=== PATIENT | female | born 1960 | race Caucasian/White ===

== ENCOUNTER 2017-03-08 10:07 | Observation (INO) | payer MEDICARE ==
[~2017-03-08] VITALS: Ht 160 cm; Wt 103.2 kg
[~2017-03-08 10:07] MED LIST: AMITRIPTYLINE 225 MG PO; BENAZEPRIL HYDR10 MG PO; Diclofenac Sodi75 MG PO; LYRICA150 MG PO; OXYCONTIN 10MG10 MG PO
[2017-03-08 10:08] VITALS: BP 123/78
--- NOTE | 2017-03-08 10:15 | Emergency Room Report ---
History of Present Illness Time Seen by 1011 Presenting Problem in Triage Pt arrived:Wheelchair Presenting Problem:PT STATES SHE WAS IN DR MUNIZ OFFICE AND HER CHEST STARTED HURTING. PT WAS GIVEN 4 81MG ASPIRIN AT THAT TIME. PT WAS DIAPHORATIC, DENIES ANY OTHER SYMPTOMS. 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 N Clinical Suspician of Infection? N Mental Status: 1 - Regular (Normal Baseline) Sepsis Risk:Low Sepsis Risk Have you (or family members/close friends) recently traveled outside the [place]? N If Yes, where/when: Have you had exposure to infectious disease within the past month? TB? Other? Specify: Patient presents with acute onset of SSCP at rest (in waiting room of PCP office for back pain appointment). Given ASA and transferred to ED. Pain self resolving and lasted about thirty minutes, associated with some diaphoresis but no SOB, no calf pain, no palpitations, no near syncope or syncope, no recent travel, no n/ v. Cardiac RF's include Dad with hx CABG, but otherwise states no pmh CAD/HTN/DM /hyperlipidemia and she denies tobacco use. 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 Hx LMP N/A Social History Smoking Hx Smoker: Never Smoker Tobacco: No Alcohol Alcohol: No Review of Systems All Other Systems Reviewed and Negative Cardiovascular see HPI Musculoskeletal see HPI Physical Exam Vital Signs Vital Signs Date Time Temp Pulse Resp B/P Pulse O2 O2 Flow FiO2 Ox Delivery Rate 03/08 1008 98.4 80 20 123/78 97 General Appearance normal appearance, WD/WN, no apparent distress Eye Exam - bilateral eye normal exam, bilateral eye PERRL, bilateral eye EOMI Neck normal inspection, non-tender, supple, full range of motion Respiratory Status Yes: trachea midline, chest symmetrical, non tender chest. No: respiratory distress, tender on palpation, use of accessory muscles, pain on inspiration, pain on expiration, productive cough, non productive cough. Lung Sounds bilateral: normal breath sounds, lungs clear. Cardiovascular normal exam, regular rate/rhythm, no peripheral edema, no gallop, no JVD, no murmur, no rub, JVD Peripheral Pulses Pulses normal Yes Gastrointestinal normal bowel sounds, normal exam, non tender, soft, no organomegaly, no pulsatile mass, no guarding, no rebound Extremities non-tender, normal range of motion, normal inspection, normal capillary refill, no calf tenderness, no pedal edema Neurologic alert, normal exam, no motor/sensory deficits, oriented x 3 Glascow Coma Scale Glascow Coma Scale Response Value EYE response: 4 Spontaneously 4 MOTOR response: 6 OBEYS 6 VERBAL response: 5 Oriented & Converses 5 Total 15 Skin intact, normal color, warm/dry Medical Decision Making LABS/Meds/Orders Pt receiving controlled substance in ED? No Sid was queried for this patient? No Results/Orders Laboratory Tests 03/08/17 1010: Sodium 141, Potassium 4.2, Chloride 103, Carbon Dioxide 31, BUN 12, Creatinine 0.9, Estimated Creat Clear 113, Estimated GFR (MDRD) 65, Glucose 100, Calcium 9.0, Total Bilirubin 0.9, AST 57 H, ALT 91 H, Alkaline Phosphatase 119 H, Creatine Kinase 202 H, CK-MB (CK-2) Rel Index 0.6, CK and CKMB Interp 1.3, Troponin I < 0.02, Total Protein 7.8, Albumin 3.8, Globulin 4.0 H, Albumin/ Globulin Ratio 1.0 L, WBC 5.8, RBC 4.37, Hgb 13.2, Hct 38.9, MCV 89.0, RDW 12.5 , Plt Count 265, MPV 7.3 L, Gran % 62.3, Gran # 3.6, Lymphocytes % 27.3, Monocytes % 5.5, Eosinophils % 4.0, Basophils % 0.9, Lymphocytes # 1.6, Monocytes # 0.3, Eosinophils # 0.2, Basophils # 0.1, PUBS MCHC 34.0, MCH 30.3 Current Medication Orders Sig/Nandini Start time Last Medication Dose Route Stop Time Status Admin Sodium Chloride 10 ML PRN PRN 03/08 1030 AC IV 03/09 1018 Orders Procedure Date/time Status Decision to admit 03/08 1122 Active ELECTROCARDIOGRAM REQUEST 03/08 1019 Active IV SALINE LOCK 03/08 1019 Active 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 of ischemic chgs, no ectopy, normal QRS, normal MD, normal EKG, no EKG for comparison XRAY/CT/US XRAY/CT/US XRAY chest XR interpretation by reviewed by me (report reviewed) Xray Results normal/NAD, no infiltrates, normal heart size, normal lung inflation fernando Consult MD Physician Consult Time Called [address] Levi to admit and serial enzymes to be checked Pulmonary Embolism Score WELL'S CRITERIA FOR PE WELL'S CRITERIA FOR PE Response Value Clinical signs/symptoms of DVT NO 0 PE is #1 diagnosis or equally likely NO 0 Heart rate is > 100 NO 0 Immobile at least 3 days, or surgery in past 4 wks NO 0 Previously, obj. diagnosed PE or DVT NO 0 Hemoptysis NO 0 Malignancy w/Rx within 6mo, or palliative NO 0 Total 0 Patient's PE Risk <1pt=LO RISK (<3%) Progress ED Progress Notes Date 03/08/17 Time 1122 Comment No complaints, stable. Departure Departure Time of Disposition 1122 Disposition Still a Patient Clinical Impression Primary Impression: Chest pain Qualifiers: Chest pain type: unspecified Qualified Code: R07.9 - Chest pain, unspecified Condition STABLE ED Critical Care Critical Care No at 1123
[2017-03-08] MEDS ORDERED: OXYCONTIN 20MG.20 MG PO (10:16)
[2017-03-08] MEDS ORDERED: DICLOFENAC SODI75 M3 PO (10:17)
[2017-03-08] MEDS ORDERED: LYRICA 100 MG100 MG PO (10:17)
--- OUTSIDE RECORDS SUMMARY | 2017-03-08 10:29 | External Medical Summary Rpt ---
Author Author , Organization [employer] Address Unknown Phone Unavailable Purpose Continuity of Care Document - through 2016
--- OUTSIDE RECORDS SUMMARY | 2017-03-08 10:29 | External Medical Summary Rpt ---
Author Author [employer] Organization [employer] Address Unknown Phone Unavailable Purpose Continuity of Care Document - through 2016
--- OUTSIDE RECORDS SUMMARY | 2017-03-08 10:29 | External Medical Summary Rpt ---
Demographics Preferred Language Burundian Marital Status Unknown Jew Affiliation Unknown Race Unknown Ethnic Group Unknown Author Author , Organization [employer] Address Unknown Phone Unavailable Purpose Continuity of Care Document - through 2016 Immunization No patient found.
--- OUTSIDE RECORDS SUMMARY | 2017-03-08 10:29 | External Medical Summary Rpt ---
Demographics Preferred Language Swedish Marital Status Unknown Islam Affiliation Unknown Race Unknown Ethnic Group Unknown Author Author , Organization [employer] Address Unknown Phone Unavailable Purpose Continuity of Care Document - through 2016 Immunization No patient found.
[2017-03-08 10:48] LABS: HEMOGLOBIN 13.2 g/dL (12.2-16.2); LYMPH # 1.6 K/mm3 (0.7-4.5); LYMPH % 27.3 % (10-50.0)
--- NOTE | 2017-03-08 10:56 | RADIOLOGY REPORT PS360 ---
CHEST-PORTABLE COMPARISON: None HISTORY: S pain TECHNIQUE: Portable upright chest FINDINGS: The patient is obviously obese however this is a fairly good inspiration and lung villarreal are clear of infiltrate. Cardiac size is normal and the vascularity is normal. There is no definite pleural fluid. IMPRESSION: Negative portable upright chest
[2017-03-08 11:09] LABS: BUN 12 mg/dL (7-18); GFR (ESTIMATED) 65 ML/MIN (59-)
--- OUTSIDE RECORDS SUMMARY | 2017-03-08 11:37 | External Medical Summary Rpt ---
Demographics Preferred Language Jordanian Marital Status Unknown Jewish Affiliation Unknown Race Unknown Ethnic Group Unknown Author Author , Organization [employer] Address Unknown Phone Unavailable Purpose Continuity of Care Document - through 2016 Immunization No patient found.
--- OUTSIDE RECORDS SUMMARY | 2017-03-08 11:37 | External Medical Summary Rpt ---
Demographics Preferred Language Zambian Marital Status Unknown Judaism Affiliation Unknown Race Unknown Ethnic Group Unknown Author Author , Organization [employer] Address Unknown Phone Unavailable Purpose Continuity of Care Document - through 2016 Immunization No patient found.
[2017-03-08 12:26] VITALS: BP 145/92
--- NOTE | 2017-03-08 13:19 | ACUTE CARE PROGRESS NOTE (QUA) ---
Progress Notes Subjective Date 03/08/17 Time 1314 Note Developed acute chest pain while sitting in waiting room of [facility]. Seen in office with discomfort, midsternal. Not SOA. Slightly diaphoretic. Heart with reg rate and rhythm. Objective Findings Last VS-Temp:98.4 B/P:145/92 Pulse:72 Resp:20 SaO2:97 ROOM AIR Last weight lbs:227 oz:0 K.967 Method:Digital Scales Exam Cardiovascular: no ectopics, normal sinus rhythm Respiratory: aerating well, clear to auscultation Extremities: no peripheral edema Assessment/Plan Plan: Patient transported to ER. Neg EKG and enzymes, but admitted for further evaluation. This inpt stay is expected to cross 2 MNs from start of care No at 1317
--- NOTE | 2017-03-08 13:19 | ACUTE CARE PROGRESS NOTE (QUA) ---
Progress Notes Subjective Date 03/08/17 Time 1314 Note Developed acute chest pain while sitting in waiting room of [facility]. Seen in office with discomfort, midsternal. Not SOA. Slightly diaphoretic. Heart with reg rate and rhythm. Objective Findings Last VS-Temp:98.4 B/P:145/92 Pulse:72 Resp:20 SaO2:97 ROOM AIR Last weight lbs:227 oz:0 K.967 Method:Digital Scales Exam Cardiovascular: no ectopics, normal sinus rhythm Respiratory: aerating well, clear to auscultation Extremities: no peripheral edema Assessment/Plan Plan: Patient transported to ER. Neg EKG and enzymes, but admitted for further evaluation. This inpt stay is expected to cross 2 MNs from start of care No at 1311
[2017-03-08 13:28] VITALS: BP 151/86
[2017-03-08] MEDS ORDERED: MAXZIDE 25 MG-31 TA1 PO (13:33)
[2017-03-08] MEDS ORDERED: FLECTOR1 EACH TD (13:34)
[2017-03-08] MEDS ORDERED: VENTOLIN H0.09 MG/AC IH (14:30)
--- NOTE | 2017-03-08 14:38 | HISTORY AND PHYSICAL REPORT ---
History and Physical (A) Date of admission: 03/08/17 Chief complaint: Chest pain History: History of Present Illness: Ms. Lopez is a 56yo female who developed acute chest pain while sitting in the waiting room of [facility]. She was seen in the office with midsternal chest discomfort. She was not SOA. She was slightly diaphoretic. Heart was reg rate and rhythm. She was given ASA and sent to the ER for evaluation. The patient' s pain began resolving and only lasted about thirty minutes. It has not returned. Her father has a hx of CABG, but she has never had any heart problems other than HTN. She was admitted for observation and serial enzymes. Past Medical History: Medical History: CAD? No Angina: No AL: No Hypertension? Yes Hyperlipidemia? No CHF? No DVT? No PE? No COPD? No Asthma? No Anemia? No GERD? No Gastric ulcers? No GI Bleed? No Hernia? No Thyroid Problems? No Hypothyroidism? No CVA? No Seizures? No Diabetes? No Renal Insuffiency? No UTI? No Stones? No BPH? No GB Disease: No Nephritic Syndrome? No Asplenia? No Hepatitis? No Sickle Cell Disease? No Arthritis? No Migraines? No Glaucoma? No MRSA? No HIV? No TB? No Depression? No Cancer? No Site: N More? No Additional hx: 1. 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 Social History: Smoking Hx Tobacco: No Smoker: Former Smoker Type: Cigarettes Packs/day: N/A Are you exposed to second hand No Alcohol: Alcohol: No Hx of Drug Use: Drug Use? No Review of Systems: Constitutional No: fatigue, lethargy, malaise, weak. ENT No: nasal congestion, sore throat. Cardiovascular Positive for: chest pain. No: edema, palpitations. Respiratory No: shortness of air, productive cough (sputum), wheezing. GI No: abdominal pain, diarrhea, nausea, vomitting. (female) No: frequency, hematuria. Neurological No: dizziness, syncope, weakness. Musculoskeletal No: extremity pain, joint pain, myalgias. Physical Exam: Vital signs: 1ST Vital Signs Result Date Time Pulse Ox 97 03/08 1008 B/P 123/78 03/08 1008 Temp 98.4 03/08 1008 Pulse 80 03/08 1008 Resp 20 03/08 1008 O2 Delivery ROOM AIR 03/08 1226 Exam: General appearance: alert, awake, no acute distress Eyes: EOM's w/normal ROM, PERRLA ENT: mucous membranes moist, nose normal, pharynx normal Neck: non-tender, no carotid bruit, full range of motion, supple Cardiovascular: regular rate & rhythm Respiratory: clear to auscultation ABD: non-distended, normal bowel sounds, no rebound, soft, no tenderness, no guarding Extremities: no peripheral edema Musculoskeletal: equal muscle strength, motor intact, sensation intact Skin: normal color Neuro: normal mood/affect, oriented, speech clear Lab data: Labs: Laboratory Tests 03/08/17 1300: Troponin I < 0.02 03/08/17 1010: Sodium 141, Potassium 4.2, Chloride 103, Carbon Dioxide 31, BUN 12, Creatinine 0.9, Estimated Creat Clear 113, Estimated GFR (MDRD) 65, Glucose 100, Calcium 9.0, Total Bilirubin 0.9, AST 57 H, ALT 91 H, Alkaline Phosphatase 119 H, Creatine Kinase 202 H, CK-MB (CK-2) Rel Index 0.6, CK and CKMB Interp 1.3, Troponin I < 0.02, Total Protein 7.8, Albumin 3.8, Globulin 4.0 H, Albumin/ Globulin Ratio 1.0 L, WBC 5.8, RBC 4.37, Hgb 13.2, Hct 38.9, MCV 89.0, RDW 12.5 , Plt Count 265, MPV 7.3 L, Gran % 62.3, Gran # 3.6, Lymphocytes % 27.3, Monocytes % 5.5, Eosinophils % 4.0, Basophils % 0.9, Lymphocytes # 1.6, Monocytes # 0.3, Eosinophils # 0.2, Basophils # 0.1, PUBS MCHC 34.0, MCH 30.3 Radiology results: Results: CXR - NORMAL Diagnosis(es): 1. Chest pain 2. Hypertension 3. Elevated LFTs 4. Chronic low back pain Plan: Patient was admitted for serial cardiac enzymes and observation. Will repeat CMP tomorrow as well to check on elevated LFT's. at 6050
[2017-03-08 15:36] VITALS: BP 146/88
[2017-03-08 19:45] VITALS: BP 142/79
[2017-03-08 20:04] VITALS: BP 142/79
[2017-03-09 00:14] VITALS: BP 141/94
[2017-03-09 04:00] VITALS: BP 118/73
[2017-03-09 06:31] LABS: HEMOGLOBIN 12.5 g/dL (12.2-16.2); LYMPH # 2.2 K/mm3 (0.7-4.5); LYMPH % 36.5 % (10-50.0)
--- NOTE | 2017-03-09 07:05 | PHARMACY CLINIC NOTE ---
Patient Demographics Patient Demographics Admission date: 03/08/17 Date: 03/09/17 Time: 0704 Allergies Coded Allergies: lisinopril (03/08/17) HEIGHT- FT: 5 IN: 3.00 K.222 VTE General Information Labs: Laboratory Tests 03/09 03/08 0600 1010 Hematology Hgb (12.2 - 16.2 g/dL) 12.5 13.2 Hct (37.0 - 47.0 %) 38.6 38.9 Plt Count (142 - 424 K/mm3) 251 265 Disclaimer The following section includes nursing documentation that has been pulled in for pharmacy review. Patient's VTE score: 2 Patient's VTE Risk: VERY LOW RISK Clinical trial participant? No VTE prophylaxis [id number] VTE prophylaxis ordered? Yes Type of prophylaxis/treatment: KAIN at 0704
[2017-03-09 07:20] VITALS: BP 138/72
--- NOTE | 2017-03-09 07:49 | CONSULT NOTE ---
Standard Demographics Patient Demo Date of Consultation: 03/09/17 Referring Provider: Amelia Levi MD Reason for Consultation: Chest pain PRIMARY DIAGNOSIS: CHEST PAIN Problem list Problem list: 1. HTN 2. FH of ASHD in father with CABG at age 57 3. Cholecystectomy 4. Breast reduction History of present illness: History of present illness: 56-year-old white female with history of hypertension was sitting in the waiting area of her family doctor's office when she developed substernal chest pressure without associated shortness of breath or radiation of symptoms. Patient did have diaphoresis. She was taken back and blood pressure was checked with reading of 157/111 mmHg per patient. She relates she had been off of her blood pressure medicine for 2 weeks due to her prescription running out. She waited until her routine appointment to ask for refills. She was given [address] Levi's office with slow resolution of symptoms thereafter. All total symptoms last for about 30 minutes. She was admitted for observation and serial cardiac enzymes. Troponins returned normal 3. Electrocardiogram shows sinus rhythm with poor R wave progression anteriorly. Her blood pressure medicine, Maxide, was restarted and she has had no further chest discomfort overnight. Patient relates she walks 2-3 miles per day without any chest discomfort. She does have chronic low back pain that prevents exercising on a treadmill. Cardiology consulted for evaluation and recommendations. Past Medical History: General: Hypertension Yes CVA No Seizures No TB No COPD No Asthma No Diabetes No Angina No NV No Hyperlipidemia No Cancer No MRSA No GB Disease No Additional hx 1. Chronic LBP Past Surgical HX: Previous Surgery?Y TUBAL BREAST REDUCTION GALLBLADDER Allergies Coded Allergies: lisinopril (03/08/17) Home medications: Reported Medications ALBUTEROL (Ventolin Hfa) 2 PUFF IH QIDP PRN SOA Diclofenac Sodium (Diclofenac Sodium Dr) 75 MG PO DAILY TRIAMTERENE/HYDROCHLOROTHIAZID (Maxzide 37.5 MG-25 MG Tablet) 0.5 TAB PO DAILY Diclofenac Epolamine (Flector) 1 PATCH TD BIDP PRN PAIN Oxycodone Hcl Sr (Oxycontin 20MG) 20 MG PO Q12H Pregabalin (Lyrica 100Mg) 150 MG PO Q8 Current Medications: Current Medications Aspirin 325 MG DAILY PO Pantoprazole Sodium 40 MG QAM PO (UNV) Pregabalin 0 .STK-MED ONE PO (DC) Oxycodone HCl 20 MG Q12H PO Oxycodone HCl 0 .STK-MED ONE PO (DC) Pregabalin 0 .STK-MED ONE PO (DC) Pantoprazole Sodium 40 MG ONCE ONE PO (UNV) Triamterene/HCTZ 0.5 TABLET DAILY PO Nitroglycerin 0.4 MG PRN PRN SL Pregabalin 150 MG Q8 PO Pregabalin 0 .STK-MED ONE PO (DC) Oxycodone HCl 20 MG Q12H PO (DC) Nitroglycerin 0.4 MG ONCE ONE SL (DC) Acetaminophen 650 MG Q4HP PRN PO Sodium Chloride 10 ML PRN PRN IV Sodium Chloride 10 ML PRN PRN IV Immunization HX DT/Tetanus Unknown Pneumonia Refuses TB Test in last year No Family history Family HX Family Hx Insignificant No Diabetes No CAD Yes Hypertension No Hyperlipidemia No Cancer No TB No Social Hx: Smoking HX Tobacco No Type Cigarettes Packs/day N/A Are you/the child exposed to second-hand smoke: No Alcohol Alcohol: No Hx of Drug Use Drug Use? No Review of systems: Constitutional No: no symptoms reported. Respiratory No: no symptoms reported. Cardiovascular see HPI, chest pain Gastrointestinal/Abdominal No no symptoms reported Genitourinary No: no symptoms reported. Musculoskeletal back pain. Neurological No: no symptoms reported. Plan: Assessment: 1. Chest pain with normal troponins 3. 2. Abnormal electrocardiogram with poor R wave progression anteriorly. 3. Family history of coronary artery disease in her father 4. Hypertension, recently off of her medications. 5. Mildly elevated LFTs with history of cholecystectomy Recommendations: 1. Recommend proceeding with [employer] [facility] today. 2. Recommend obtaining echocardiogram due to history of hypertension and abnormal electrocardiogram. 3. Further recommendations to follow.
--- NOTE | 2017-03-09 07:54 | ACUTE CARE PROGRESS NOTE (QUA) ---
See Addendum Progress Notes Subjective Date 03/09/17 Time 0749 Note Pt states she is feeling well this am. Denies anymore CP. Slept well. Has been NPO this am for cardiology consult. Objective Findings Last VS-Temp:98.2 B/P:138/72 Pulse:69 Resp:20 SaO2:94 ROOM AIR Last weight lbs:227 oz:9 K.222 Method:Bed Scales Laboratory Tests 03/09/17 0600: Sodium 142, Potassium 4.0, Chloride 104, Carbon Dioxide 35 H, BUN 15, Creatinine 0.9, Estimated Creat Clear 114, Estimated GFR (MDRD) 65, Glucose 96, Calcium 9.1, Total Bilirubin 0.5, AST 45 H, ALT 79 H, Alkaline Phosphatase 112 , Total Protein 7.4, Albumin 3.5, Globulin 3.9 H, Albumin/Globulin Ratio 0.9 L , WBC 5.9, RBC 4.27, Hgb 12.5, Hct 38.6, MCV 90.5, RDW 12.7, Plt Count 251, MPV 7.3 L, Gran % 53.1, Gran # 3.1, Lymphocytes % 36.5, Monocytes % 6.1, Eosinophils % 3.7, Basophils % 0.6, Lymphocytes # 2.2, Monocytes # 0.4, Eosinophils # 0.2, Basophils # 0.0, PUBS MCHC 32.3, MCH 29.2 03/08/17 1557: Troponin I < 0.02 03/08/17 1300: Troponin I < 0.02 03/08/17 1010: Sodium 141, Potassium 4.2, Chloride 103, Carbon Dioxide 31, BUN 12, Creatinine 0.9, Estimated Creat Clear 113, Estimated GFR (MDRD) 65, Glucose 100, Calcium 9.0, Total Bilirubin 0.9, AST 57 H, ALT 91 H, Alkaline Phosphatase 119 H, Creatine Kinase 202 H, CK-MB (CK-2) Rel Index 0.6, CK and CKMB Interp 1.3, Troponin I < 0.02, Total Protein 7.8, Albumin 3.8, Globulin 4.0 H, Albumin/ Globulin Ratio 1.0 L, WBC 5.8, RBC 4.37, Hgb 13.2, Hct 38.9, MCV 89.0, RDW 12.5 , Plt Count 265, MPV 7.3 L, Gran % 62.3, Gran # 3.6, Lymphocytes % 27.3, Monocytes % 5.5, Eosinophils % 4.0, Basophils % 0.9, Lymphocytes # 1.6, Monocytes # 0.3, Eosinophils # 0.2, Basophils # 0.1, PUBS MCHC 34.0, MCH 30.3 Exam General appearance: alert, awake, no acute distress Cardiovascular: regular rate & rhythm Respiratory: clear to auscultation ABD: non-distended, normal bowel sounds, no rebound, soft, no tenderness, no guarding Extremities: no peripheral edema Assessment/Plan Problem List 1. Chest pain 2. Hypertension 3. Elevated LFTs 4. Chronic low back pain Plan: Pt is NPO for a stress test today. Cardiology has also ordered an echo. Cardiac enzymes have been normal. If all tests are normal today, patient can be discharged. This inpt stay is expected to cross 2 MNs from start of care No at 0757 at 5902
[2017-03-09 08:22] VITALS: BP 138/72
--- NOTE | 2017-03-09 14:22 | RADIOLOGY REPORT PS360 ---
PROCEDURE: 2-D M-mode and color Doppler study INDICATIONS FOR THE TEST: Chest pain + COPD Heart Murmur Tobacco Smoking Palpitations Fatigue Syncope Edema Hypertension + Diabetes Mellitus Rheumatic Fever SOB TOMAS Obesity+Hyperlipidemia Family History HD Additional History ABN EKG PATIENT INFORMATION HEIGHT: 63 WEIGHT:227 GENDER: Female B/P:138/72 2-D/M-MODE INTERPRETATION: 2-D MEASUREMENTS OBSERVED VALUES IN CMS Right Ventricular Dimension (RVDd) 2.1 Interventricular Septum (Thickness)(IVsd) 1.4 Left Ventricular Internal Dimensions(LVIDd) 4.8 Left Ventricular Posterior Wall (Thickness)(LVPWd) 1.1 Aortic Root 3.5 Aortic Cusp Separation 2.1 Left Atrial Dimensions (LAD) 4.1 2D 1. Technically difficult study because of the patient's factor and poor acoustic windows. 2. The left atrium is mildly enlarged, left ventricle is normal size, there is mild concentric left ventricular hypertrophy, visually estimated ejection fraction 55% with no obvious regional wall motion abnormality. 3. The right atrium is normal size, right ventricle is mildly enlarged with normal contractility. 4. The aortic valve is minimally thickened and fibrosed. 5. The mitral and tricuspid valve are grossly normal. 6. No significant pericardial effusion noted. 7. The pulmonic valve is not well visualized. DOPPLER INTERROGATION: Doppler interrogation of the aortic mitral and tricuspid presence of mild mitral and tricuspid regurgitation, tricuspid regurgitant jet velocity insufficient for calculation of the right ventricular systolic pressure, grade 1 diastolic dysfunction seen without tissue Doppler evidence of raised left atrial pressure. CONCLUSION: 1. Normal left ventricular size, mild concentric left ventricular hypertrophy, visually estimated ejection fraction 55% with no obvious regional wall motion abnormality, grade 1 diastolic dysfunction seen without tissue Doppler evidence of raised left atrial pressure. 2. Mild mitral and tricuspid regurgitation, tricuspid regurgitant jet velocity insufficient for calculation of the right ventricular systolic pressure. 3. No significant pericardial effusion noted.
--- NOTE | 2017-03-09 15:15 | RADIOLOGY REPORT PS360 ---
History and Indications: Hypertension, family history, chest pain and shortness of breath. Procedure: Patient received a 0.4 mg of Lexiscan, resting heart rate was 75 bpm resting blood pressure 137/80, with Lexiscan maximum heart rate achieved was 116 bpm which is less than 85% of the maximum predicted heart rate and a blood pressure was 98/62. With Lexiscan patient complained of flushed feeling and head pressure. Electrocardiogram: Resting electrocardiogram showed sinus rhythm, with Lexiscan less than 1.[address] segment depression noted from the baseline EKG. The EKG portion of the Lexiscan is nondiagnostic. Cardiac stress and resting SPECT images: Cardiac stress and the suspect images were obtained technetium 99 Myoview 11.0 mCi at rest 31.1 mCi at stress, gated SPECT further analysis of segmental wall motion and calculation of the ejection fraction also done. Cardiac stress and the suspect show uniform myocardial activity without any segmental perfusion abnormality, computer derived ejection fraction he 5% with no obvious regional wall motion abnormality, right ventricle is mildly enlarged with normal contractility. Conclusion: 1. The EKG portion of the Lexiscan is nondiagnostic. 2. No obvious scintigraphic evidence of reversible ischemia seen, computer derived ejection fraction over 65% with no obvious regional wall motion abnormality, right ventricle is mildly enlarged with normal contractility.
--- NOTE | 2017-03-09 15:22 | RADIOLOGY REPORT PS360 ---
US LIVER (ABD LTD) COMPARISON: None HISTORY: Chest pain, hypertension, elevated liver enzymes TECHNIQUE: Ultrasound the liver and right upper quadrant FINDINGS: The pancreas is normal. The liver is normal in size and shows diffuse rather homogeneous increased echogenicity consistent with fatty infiltration. The gallbladder is surgically absent. The common bile duct is normal in caliber. Right kidney measures 10.5 x 5.1 x 5.7 cm and shows a good cortical medullary junction with no hydronephrosis or other abnormality. IMPRESSION: Fatty liver, no other significant abnormality noted
[2017-03-09 18:02] VITALS: BP 138/72
== END 2017-03-09 17:49 | disposition home or self-care (01) ==
LOC: ER 10:07 → 2ND 11:27
PROVIDERS: Emergency Medicine; Family Medicine
DX: R07.9 Chest pain, unspecified (principal); I10 Essential (primary) hypertension
CPT/HCPCS: A9502; G0378; J2785